=== PATIENT | female | born 1965 | race Caucasian/White ===

== ENCOUNTER 2023-11-16 02:49 | Emergency (ER) | payer BC, SELFPAY ==
[2023-11-16] VITALS (25 sets, daily range): BP systolic 90–149; BP diastolic 58–117; BMI 31.7
[2023-11-16 03:42] LABS: % Basophils 0.6 % (0-2); % Eosinophils 1.4 % (0-6); % Immature Granulocytes 0.5 % (0-0.5); % Lymphocytes 24.4 % (20.5-51.1); % Monocytes 8.6 % (1.7-9.3); % Neutrophils 64.5 % (42.2-75.2); Absolute Eosinophils 0.1 10^3/uL (0-0.7); Absolute Lymphocytes 1.5 10^3/uL (1.2-3.4); Absolute Monocytes 0.5 10^3/uL (0.1-0.6); Hematocrit 35.2 % (37.0-47.0); Hemoglobin 11.8 g/dL (12.0-16.0); Mean Corp Hgb Conc. 33.5 g/dL (33.0-37.0); Mean Corpuscular Hgb 33.7 pg (27.0-31.0); Mean Corpuscular Volume 100.6 fL (81.0-99.0); Mean Platelet Volume 10.2 fL (7.4-10.4); Nucleated Red Blood Cells % 0 %; Platelet Count 249 10^3/uL (130-400); Red Cell Dist. Width 16.9 % (11.5-14.5); White Blood Cell Count 6.3 10^3/uL (4.8-10.8)
[2023-11-16 03:57] LABS: ALT (SGPT) 28 U/L (0-35); AST (SGOT) 54 U/L (14-36); Albumin 3.7 g/dl (3.5-5.0); Alkaline Phosphatase 88 U/L (38-126); Blood Urea Nitrogen 19 mg/dl (7-17); Calcium 8.9 mg/dl (8.4-10.2); Carbon Dioxide 29 mmol/L (22-30); Chloride 108 mmol/L (98-107); Estimated Creatinine Clearance 75 ml/min; Glucose 96 mg/dl (70-99); Sodium 137 mmol/L (135-145); Total Bilirubin 0.7 mg/dl (0.2-1.3); eGFR > 60.00
--- NOTE | 2023-11-16 05:27 | ED.GENMED ---
History of Present Illness
<COOKIE Garner - Last Filed: 11/16/23 06:59>
General
Chief Complaint: Musculo-Skeletal Complaint
Source: patient and significant other
Exam Limitations: none
Time Seen by Provider: 11/16/23 05:10
Nursing documentation reviewed up to this point in time: agreed with
Travel History
Have you had any contact with someone who has COVID-19?: No
Do you have any symptoms of coronavirus? Fever > 100 degrees, chills, cough, shortness of breath, sore throat, loss of taste or smell, muscle aches, or headache?: No
History of Present Illness
History of Present Illness:
Pt is a 58 yo female with right PARK in January 2023 and left PARK in june who presents today after bending down and feeling a 'pop' in her left hip. Pt states that she bent down towards her left side and felt a 'pop' and a severe pain in her left
hip. She collapsed and could not move her left leg. EMS was called and fentanyl was given for pain relief, last dose at 2:15 am. Pt presented with shortened, internally rotated left hip and appears dislocated upon xray. Pt states that she is in a
great deal of pain. Denies numbness or tingling down her left leg, abdominal pain, back pain, chest pain, SOB.
Past History
<COOKIE Garner - Last Filed: 11/16/23 06:59>
Past History
ED Past Medical History: Other (reviewed pmhx and agree)
ED Past Surgical History: Other (reviewed documented pshx and agree)
Social History
Personal:
Living: with family
Review of Systems
<COOKIE Garner - Last Filed: 11/16/23 06:59>
Review of Systems
Allergies reviewed?: Yes
Other source history: family
All Other Systems: ROS reviewed and negative except as documented in HPI and ROS
Phy Exam
<Yenifermoris Mckoy [facility] - Last Filed: 11/16/23 06:59>
General Physical Exam
General Presentation: mild distress
General Skin: warm and dry
General Mental: alert
ENT Exam
ENT Exam: neck supple, normocephalic and swallowing well
Cardiovascular Exam
Cardiovascular Exam: regular rate/rhythm, no edema, no gallop, no murmur and normal peripheral pulses
Pulmonary Exam
Pulmonary Exam: lungs clear, no respiratory distress, no rales, no crackles, no rhonchi, no stridor, no wheezing and no cough
Neurological Exam
Neurological Exam: alert, oriented x3 and speech normal
Musculoskeletal Exam
Musculoskeletal Exam: other (shortened, internally rotated left hip)
Skin Exam
Skin Exam: normal color and warm/dry
Psychiatric Exam
Psychiatric Exam: normal mood/affect
Course
<Yenifer Mckoy [facility] - Last Filed: 11/16/23 06:59>
Orders/Labs/Results
Orders:
Orders
11/16/23 03:14
CBC/With Diff [Complete Blood Count/With Diff] Urgent
Comprehensive Metabolic Panel Urgent
11/16/23 03:48
CR Hip - LT w/wo Pel 2-3 Vw* Urgent
Reason For Exam: injury
11/16/23 05:36
HYDROmorphone [Dilaudid] 0.5 mg .ROUTE .STK-MED ONE
11/16/23 05:40
HYDROmorphone [Dilaudid] 0.5 mg IV NOW STA
11/16/23 05:59
Propofol [Diprivan] 20 ml .ROUTE .STK-MED
11/16/23 06:10
Hip, Left 1 View [CR Hip - LT without Pel 1 Vw] Urgent
Comment: portable x-ray
Reason For Exam: post reduction
11/16/23 06:44
Knee Immobilizer Left-Treatmen ONCE
Abnormal Lab Results
11/16/23
03:14
RBC 3.50 L 10^6/uL
(4.20-5.40)
Hgb 11.8 L g/dL
(12.0-16.0)
Hct 35.2 L %
(37.0-47.0)
MCV 100.6 H fL
(81.0-99.0)
MCH 33.7 H pg
(27.0-31.0)
RDW 16.9 H %
(11.5-14.5)
Chloride 108 H mmol/L
(98-107)
BUN 19 H mg/dl
(7-17)
AST 54 H U/L
(14-36)
Total Protein 6.0 L g/dl
(6.3-8.2)
11/16/23 03:14
11/16/23 03:14
Vital Signs
Initial and Last Documented VS:
Initial Vital Signs
Temp Pulse Resp BP Pulse Ox
97.8 F 74 14 143/88 100
11/16/23 02:50 11/16/23 02:50 11/16/23 02:50 11/16/23 02:50 11/16/23 02:50
Last Documented Vital Signs
Temp Pulse Resp BP Pulse Ox
97.8 F 75 13 141/91 98
11/16/23 06:27 11/16/23 06:45 11/16/23 06:45 11/16/23 06:42 11/16/23 06:45
Mikelt;Rhianna Torres, DO - Last Filed: 11/16/23 07:00>
Orders/Labs/Results
Orders:
Orders
11/16/23 03:14
CBC/With Diff [Complete Blood Count/With Diff] Urgent
Comprehensive Metabolic Panel Urgent
11/16/23 03:48
CR Hip - LT w/wo Pel 2-3 Vw* Urgent
Reason For Exam: injury
11/16/23 05:36
HYDROmorphone [Dilaudid] 0.5 mg .ROUTE .STK-MED ONE
11/16/23 05:40
HYDROmorphone [Dilaudid] 0.5 mg IV NOW STA
11/16/23 05:59
Propofol [Diprivan] 20 ml .ROUTE .STK-MED
11/16/23 06:10
Hip, Left 1 View [CR Hip - LT without Pel 1 Vw] Urgent
Comment: portable x-ray
Reason For Exam: post reduction
11/16/23 06:44
Knee Immobilizer Left-Treatmen ONCE
Abnormal Lab Results
11/16/23
03:14
RBC 3.50 L 10^6/uL
(4.20-5.40)
Hgb 11.8 L g/dL
(12.0-16.0)
Hct 35.2 L %
(37.0-47.0)
MCV 100.6 H fL
(81.0-99.0)
MCH 33.7 H pg
(27.0-31.0)
RDW 16.9 H %
(11.5-14.5)
Chloride 108 H mmol/L
(98-107)
BUN 19 H mg/dl
(7-17)
AST 54 H U/L
(14-36)
Total Protein 6.0 L g/dl
(6.3-8.2)
11/16/23 03:14
11/16/23 03:14
Vital Signs
Initial and Last Documented VS:
Initial Vital Signs
Temp Pulse Resp BP Pulse Ox
97.8 F 74 14 143/88 100
11/16/23 02:50 11/16/23 02:50 11/16/23 02:50 11/16/23 02:50 11/16/23 02:50
Last Documented Vital Signs
Temp Pulse Resp BP Pulse Ox
97.8 F 75 13 141/91 98
11/16/23 06:27 11/16/23 06:45 11/16/23 06:45 11/16/23 06:42 11/16/23 06:45
<Rhianna Torres DO - Last Filed: 11/16/23 07:00>
Moderate Sedation
ASA Risk Score: Class II
Chart and allergies reviewed: Yes
Consent for anesthesia obtained: Yes
Time out completed (validating right patient & procedure): Yes
History of difficult intubation: No
Airway free of obstruction: Yes
Patient has a gag reflex: Yes
Patient is able to open mouth: Yes
Patient has no dentures: Yes
Patient has no loose teeth: Yes
Medication administered by Provider during Moderate Sedation: IV Propofol (mg)
Total dose administered: 100
Time drug administered: 06:05
Start Time: 06:05
Stop Time: 06:15
Joint/Fracture Reduction
Left Hip:
Indication for procedure:: Prosthetic left hip dislocation
Procedure completed by: Myself
Consent form signed: Yes
Joint reduced: with anesthesia sedation
Injury was: closed
Further treatement: no treatment needed
Post reduction exam: stable
Capillary Refill: normal
Normal distal neurovascular exam?: Yes
<COOKIE Garner - Last Filed: 11/16/23 06:59>
*Critical Care Note
Total Time (30-74mins, 75-104mins- exclusive of procedures): Not Applicable
<Rhianna Torres DO - Last Filed: 11/16/23 07:00>
*Radiology
Radiology exam reviewed: preliminary read by ED provider (Left hip x-ray shows posterior dislocation of prosthetic left hip. No evidence of fracture.)
*Pulse Oximetry
Patient hypoxic: no
*[employer] Interpretation
Rate: normal
Interpretation: normal
Rhythm: sinus
*Critical Care Note
Total Time (30-74mins, 75-104mins- exclusive of procedures): Not Applicable
ED Attending Note
<COOKIE Garner - Last Filed: 11/16/23 06:59>
-
Portions of this chart may have been created with voice recognition software.� Occasional wrong word or��sound alike� substitutions may have occurred due to the inherent limitations of voice recognition software.
<Rhianna Torres DO - Last Filed: 11/16/23 07:00>
ED Attending Note
Patient seen and examined by attending physician: Yes
I performed the substantive portion of visit, reviewed & personally made and approve the management plan that is documented in note by myself or MONET.: Yes
I performed a history and physical exam of patient and discussed management with resident, I reviewed resident's note and agree with documented findings and plan of care.: Yes
ED Attending Note:
This is a 58-year-old woman with history of chronic back pain, narcotic dependent, history of left total hip replacement by Dr. Davis June of this year. Has overall been doing well but does admit to some chronic left posterior hip pain most
noted when she sits on the toilet or sits in a chair. Tonight however she bent over to pick something up and felt a pop in left hip with onset of severe pain of her left hip and inability to move her hip due to increased pain. She did not fall.
She denies weakness nor numbness. She denies back pain.
She arrives via EMS. Left leg is noted to be shortened and internally rotated. She was given fentanyl IV prehospital.
She continues with moderate pain of her left hip only noted when she attempts to move her hip. Pain resolves when she is lying still.
No prior history of dislocation.
GENERAL: 58-year-old woman appears her stated age, awake and alert, appears in mild distress related to pain. Cooperative. is accompanying.
The head is normocephalic, atraumatic.
NECK: Supple, nontender, no meningismus, no significant adenopathy.
ENT: oral mucosa is moist. No rhinorrhea.
CARDIAC: Regular rate and rhythm. no murmur.
LUNGS: Clear breath sounds bilaterally, no acute respiratory distress, no wheezes/rales/rhonchi
ABDOMEN: Soft, nondistended, without focal tenderness, no r/g, no cvat. normoactive BS.
NEUROLOGICAL: Alert and oriented x3, no focal neuro deficits.
SKIN: Warm and dry, normal color, skin intact. No rash.
MUSCULOSKELETAL: No C/C/E. peripheral pulses are full and equal b/l. Left lower extremity is mildly shortened and internally rotated. Marked pain about the left hip with limited range of motion of left hip related to pain. There is no tenderness
about the thigh nor knee.
PSYCH: Normal and appropriate interaction.
Significant concern for acute prosthetic left hip dislocation and x-ray verifies this. There is no evidence of fracture.
Will plan for moderate sedation, closed reduction of left hip.
After much discussion, patient agreeable with this plan.
Will plan to notify orthopedics as per patient's request with ultimate goal for closed reduction, discharged to home with outpatient follow-up with orthopedics.
11/16/2023 0630 AM
Successful closed reduction of left prosthetic hip dislocation under moderate sedation with propofol.
Patient tolerated procedure well without complications.
Postreduction film reveal successful hip reduction. No evidence of fracture.
Patient is now awake and alert, reports significant relief of left hip pain.
She will be placed in a knee immobilizer on left leg with plan for discharge to home with follow-up with orthopedics.
She can continue her usual chronic narcotic pain medications.
Discharge Plan
Departure
Patient Disposition: Home (Routine Discharge)
Date of Disposition: 11/16/23
Time of Disposition: 06:57
Patient with high blood pressure during this ER visit?: No
Discharge Problem:
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
Instructions: Hip Dislocation (DC), Moderate Sedation in Adults (DC)
Prescriptions:
No Action
cyanocobalamin (vitamin B-12) 1,000 MCG/ML solution
1,000 mcg SC Q30D
Nucynta ER 100 MG tablet extended release 12 hr
150 mg PO BID
topiramate 200 mg Tablet
200 mg PO Q12H
ergocalciferol (vitamin D2) [Vitamin D2] 1,250 mcg (50,000 unit) Capsule
1,250 mcg PO PRN PRN (Reason: LOW VIT D)
Patient Comments:
TWICE WEEKLY X 8 WEEKS WHEN LEVELS LOW
calcitriol 0.25 mcg Capsule
0.25 mcg PO DAILY
eszopiclone [Lunesta] 3 mg Tablet
3 mg PO HS PRN (Reason: sleep)
lisdexamfetamine [Vyvanse] 70 mg Capsule
70 mg PO DAILY
venlafaxine 37.5 mg Tablet Extended Release 24hr
37.5 mg PO DAILY
levothyroxine 137 mcg Capsule
137 mcg PO DAILY
Nuedexta 20-10 mg Capsule
1 cap PO Q12H
Vraylar 1.5 mg Capsule
1.5 mg PO DAILY
cocoa butter-shark liver oil Suppository
1 supp [place] DAILYPRN PRN (Reason: constipation)
propranolol 40 mg Tablet
40 mg PO TID
diazepam [Valium] 10 mg Tablet
10 mg PO TID-QID
estradiol 2 mg (7.5 mcg /24 hour) Ring
1 vag ring VAGINAL [id number]
Patient Comments:
Patient stated vaginal ring has been out
diclofenac potassium 25 mg Capsule
25 mg PO DAILY
Hold Instructions: Resume on 07/17/23. hold while on Celecoxib/Celebrex
Xeljanz XR 11 mg Tablet Extended Release 24 Hr
11 mg PO DAILY
Hold Instructions: Resume on 07/22/23.
methotrexate 2.5 mg/mL Solution
12.5 mg PO .TWICEWEEKLY
baclofen 5 mg Tablet
5 mg PO PRN PRN (Reason: MUSCLE SPASMS)
furosemide [Lasix] 20 mg tablet
20 mg PO DAILY
Rx Instructions:
HOLD IF systolic blood pressure <130
polyethylene glycol 3350 [Miralax] 17 gram/dose Powder
4 g PO DAILY PRN (Reason: CONSTIPATION )
mupirocin 2 % ointment
1 applic topical BID Qty: 1 0RF
Patient Comments:
started treatment thursday06/29/23 and was taking BID , last took at home 06/30/23 2200.
nystatin 100,000 unit/gram powder
1 applic topical BID Qty: 30 0RF
Patient Comments:
last took at home 06/30/23 in evening
Rx Instructions:
apply in inguinal folds
celecoxib 200 mg capsule
200 mg PO DAILY Qty: 14 0RF
Rx Instructions:
*take with food
*space out 2 hours from aspirin
prochlorperazine maleate [prochlorperazine maleate] 5 mg tablet
5 mg PO Q6HPRN PRN (Reason: n/v) Qty: 15 1RF
Rx Instructions:
take 1/2 hour before pain med if experiencing recurrent nausea
cefadroxil 500 mg capsule
500 mg PO BID Qty: 14 0RF
Rx Instructions:
*Take w/ food
*Take w/ probiotic
*POST-OP USE
dexamethasone 4 mg tablet
4 mg PO BID Qty: 6 0RF
Rx Instructions:
take with food
post-op use only
gabapentin 300 mg capsule
300 mg PO HS Qty: 10 0RF
Patient Comments:
last took 07/01/23 at 0700
bupropion HCl 150 mg Tablet Extended Release 24 Hr
150 mg PO BID
Nucynta 75 mg Tablet
75 mg PO Q6H PRN (Reason: moderate-severe pain)
aspirin 325 mg tablet
325 mg PO DAILY Qty: 1 0RF
Rx Instructions:
Take with food
magnesium hydroxide [Milk of Magnesia] 400 mg/5 mL suspension
30 ml PO HS Qty: 30 0RF
Rx Instructions:
*TAKE NIGHTLY UNTIL BM*
docusate sodium [Colace] 100 mg capsule
100 mg PO BID Qty: 1 0RF
sennosides [Senokot] 8.6 mg tablet
17.2 mg PO BID Qty: 2 0RF
prednisone 1 mg Tablet
4 mg PO DAILY PRN (Reason: RA FLAIR) Qty: 0 0RF
Rx Instructions:
do not take while on Dexamethasone
fluconazole [Diflucan] 100 mg tablet
100 mg PO DAILY Qty: 1 0RF
Rx Instructions:
TAKE 2 DAYS AFTER LAST CEFADROXIL DOSE
Referrals:
Jamshid Dumas DO [Family Provider] -
Bull Davis MD [Active] - Call in 1-3 days for appt
Interventions
Interventions:
*Risk Screen - Suicide Last Done: 11/16/23 02:50
*General Assessment Last Done: 11/16/23 02:50
*Neglect/Abuse Screening Last Done: 11/16/23 02:50
ED- Fall Risk Assessment Last Done: 11/16/23 03:04
*ED COVID-19 Vaccine History Last Done: 11/16/23 03:04
ED-Musculoskeletal Assessment Last Done: 11/16/23 03:04
[2023-11-16] MEDS: DILAUDID 0.5 MG IV (05:41)
[2023-11-16] MEDS: NSS 1000 IV (05:50)
== END 2023-11-16 07:29 | disposition home or self-care (01) ==
LOC: EMR 02:49
PROVIDERS: EMERGENCY PHYSICIAN Emergency Medicine; FAMILY PHYSICIAN Family Medicine
DX: T84.021A Dislocation of internal left hip prosthesis, initial encounter (principal); Z96.641 Presence of right artificial hip joint
CPT/HCPCS: 99285; 27265; 96374; 96361; 99152; 73501; 73502; 80053; 85025

== ENCOUNTER 2024-06-13 20:10 | Emergency (ER) | payer BC, MEDICARE, SELFPAY ==
[2024-06-13] VITALS (11 sets, daily range): BP systolic 116–162; BP diastolic 66–108; BMI 29.5
[2024-06-13] MEDS: DILAUDID 0.5 MG IV (21:15)
--- NOTE | 2024-06-13 22:00 | ED.GENMED ---
History of Present Illness
General
Chief Complaint: Musculo-Skeletal Complaint
Source: patient
Time Seen by Provider: 06/13/24 21:19
History of Present Illness
History of Present Illness:
58-year-old female presents to the emergent complaint right hip pain. Patient states that she was 'jiggling to get out of her bathing suit' and bending over when she felt her right hip pop out. She had immediate pain. She was unable to stand.
Patient has bilateral hip replacements. She had a spontaneous dislocation of her left hip recently. This feels very similar. No other injury
Past History
Past History
ED Past Medical History: Other (reviewed pmhx and agree)
ED Past Surgical History: Other (reviewed documented pshx and agree)
Social History
Personal:
Living: with family
Phy Exam
Physical Exam
Physical Exam:
General: Awake, Alert, Oriented X3. No acute distress.
Vitals: unremarkable
Head: Atraumatic
Eyes: Pupils equal, EOMI
Throat: Airway intact, no exudates
Neck: Trachea midline
Lungs: Clear and equal b/l
Heart: Regular rate, no murmurs
Abd: Soft, Nontender, No pulsatile mass
Neuro: Nonfocal
Skin: Warm, dry, no rash
Extremities: Right hip internally rotated and shortened. Pulses intact
Course
Orders/Labs/Results
Orders:
Orders
06/13/24 21:00
Hip, Right 2-3 Views [CR Hip - RT w/wo Pel 2-3 Vw*] Urgent
Comment:
Reason For Exam: hip pain, rotated
Include a pelvis x-ray?: No
06/13/24 21:13
HYDROmorphone [Dilaudid] 0.5 mg IV NOW STA
06/13/24 21:22
Propofol [Diprivan] 20 ml .ROUTE .STK-MED
06/13/24 21:48
CR Hip - RT without Pel 1 Vw Urgent
Comment:
Reason For Exam: post reduction
Vital Signs
Initial and Last Documented VS:
Initial Vital Signs
Temp Pulse Resp BP Pulse Ox
98.2 F 76 15 162/98 100
06/13/24 20:12 06/13/24 20:12 06/13/24 20:12 06/13/24 20:12 06/13/24 20:12
Last Documented Vital Signs
Temp Pulse Resp BP Pulse Ox
98.2 F 88 20 137/85 97
06/13/24 20:12 06/13/24 22:15 06/13/24 22:15 06/13/24 22:15 06/13/24 22:15
Procedures
Moderate Sedation
ASA Risk Score: Class II
Chart and allergies reviewed: Yes
Consent for anesthesia obtained: Yes
Time out completed (validating right patient & procedure): Yes
History of difficult intubation: No
Airway free of obstruction: Yes
Patient has a gag reflex: Yes
Patient is able to open mouth: Yes
Patient has no dentures: Yes
Patient has no loose teeth: Yes
Medication administered by Provider during Moderate Sedation: IV Propofol (mg)
Total dose administered: 150
Time drug administered: 21:45
Moderate Sedation Procedure End Time: 22:00
Joint/Fracture Reduction
Right Hip:
Indication for procedure:: dislocation
Procedure completed by: Ady Norwood and myself
Consent form signed: Yes
Joint reduced: with anesthesia sedation
Injury was: closed
Further treatement: needs re-check only
Post reduction exam: stable
Capillary Refill: normal
Normal distal neurovascular exam?: Yes
MDM/Problems Addressed
Differential Diagnosis Includes:
Hip dislocation, hip fracture
MDM/Problems Addressed:
Imaging confirms the presence of a right hip dislocation. We were able to reduce the hip with procedural sedation. Patient feels much better after the procedure. Postprocedure x-ray confirms reduction.
*Radiology
Radiology exam reviewed: preliminary read by ED provider (First hip x-ray shows dislocation of hip prosthesis. Second hip x-ray shows adequate reduction.)
*Pulse Oximetry
Patient hypoxic: no
*Critical Care Note
Total Time (30-74mins, 75-104mins- exclusive of procedures): Not Applicable
ED Attending Note
-
Portions of this chart may have been created with voice recognition software.� Occasional wrong word or��sound alike� substitutions may have occurred due to the inherent limitations of voice recognition software.
Discharge Plan
Departure
Patient Disposition: Home (Routine Discharge)
Date of Disposition: 06/13/24
Time of Disposition: 22:35
Patient with high blood pressure during this ER visit?: Yes
Discharge Problem:
Hip dislocation, right
Instructions: Hip Dislocation (DC), Procedural Sedation, Adult ED
Prescriptions:
No Action
cyanocobalamin (vitamin B-12) 1,000 MCG/ML solution
1,000 mcg SC Q30D
Nucynta ER 100 MG tablet extended release 12 hr
150 mg PO BID
topiramate 200 mg Tablet
200 mg PO Q12H
ergocalciferol (vitamin D2) [Vitamin D2] 1,250 mcg (50,000 unit) Capsule
1,250 mcg PO PRN PRN (Reason: LOW VIT D)
Patient Comments:
TWICE WEEKLY X 8 WEEKS WHEN LEVELS LOW
calcitriol 0.25 mcg Capsule
0.25 mcg PO DAILY
eszopiclone [Lunesta] 3 mg Tablet
3 mg PO HS PRN (Reason: sleep)
lisdexamfetamine [Vyvanse] 70 mg Capsule
70 mg PO DAILY
venlafaxine 37.5 mg Tablet Extended Release 24hr
37.5 mg PO DAILY
levothyroxine 137 mcg Capsule
137 mcg PO DAILY
Nuedexta 20-10 mg Capsule
1 cap PO Q12H
Vraylar 1.5 mg Capsule
1.5 mg PO DAILY
cocoa butter-shark liver oil Suppository
1 supp [place] DAILYPRN PRN (Reason: constipation)
propranolol 40 mg Tablet
40 mg PO TID
diazepam [Valium] 10 mg Tablet
10 mg PO TID-QID
estradiol 2 mg (7.5 mcg /24 hour) Ring
1 vag ring VAGINAL [id number]
Patient Comments:
Patient stated vaginal ring has been out
diclofenac potassium 25 mg Capsule
25 mg PO DAILY
Xeljanz XR 11 mg Tablet Extended Release 24 Hr
11 mg PO DAILY
methotrexate 2.5 mg/mL Solution
12.5 mg PO .TWICEWEEKLY
baclofen 5 mg Tablet
5 mg PO PRN PRN (Reason: MUSCLE SPASMS)
furosemide [Lasix] 20 mg tablet
20 mg PO DAILY
Rx Instructions:
HOLD IF systolic blood pressure <130
polyethylene glycol 3350 [Miralax] 17 gram/dose Powder
4 g PO DAILY PRN (Reason: CONSTIPATION )
mupirocin 2 % ointment
1 applic topical BID Qty: 1 0RF
Patient Comments:
started treatment thursday06/29/23 and was taking BID , last took at home 06/30/23 2200.
nystatin 100,000 unit/gram powder
1 applic topical BID Qty: 30 0RF
Patient Comments:
last took at home 06/30/23 in evening
Rx Instructions:
apply in inguinal folds
celecoxib 200 mg capsule
200 mg PO DAILY Qty: 14 0RF
Rx Instructions:
*take with food
*space out 2 hours from aspirin
prochlorperazine maleate [prochlorperazine maleate] 5 mg tablet
5 mg PO Q6HPRN PRN (Reason: n/v) Qty: 15 1RF
Rx Instructions:
take 1/2 hour before pain med if experiencing recurrent nausea
cefadroxil 500 mg capsule
500 mg PO BID Qty: 14 0RF
Rx Instructions:
*Take w/ food
*Take w/ probiotic
*POST-OP USE
dexamethasone 4 mg tablet
4 mg PO BID Qty: 6 0RF
Rx Instructions:
take with food
post-op use only
gabapentin 300 mg capsule
300 mg PO HS Qty: 10 0RF
Patient Comments:
last took 07/01/23 at 0700
bupropion HCl 150 mg Tablet Extended Release 24 Hr
150 mg PO BID
Nucynta 75 mg Tablet
75 mg PO Q6H PRN (Reason: moderate-severe pain)
aspirin 325 mg tablet
325 mg PO DAILY Qty: 1 0RF
Rx Instructions:
Take with food
magnesium hydroxide [Milk of Magnesia] 400 mg/5 mL suspension
30 ml PO HS Qty: 30 0RF
Rx Instructions:
*TAKE NIGHTLY UNTIL BM*
docusate sodium [Colace] 100 mg capsule
100 mg PO BID Qty: 1 0RF
sennosides [Senokot] 8.6 mg tablet
17.2 mg PO BID Qty: 2 0RF
prednisone 1 mg Tablet
4 mg PO DAILY PRN (Reason: RA FLAIR) Qty: 0 0RF
Rx Instructions:
do not take while on Dexamethasone
fluconazole [Diflucan] 100 mg tablet
100 mg PO DAILY Qty: 1 0RF
Rx Instructions:
TAKE 2 DAYS AFTER LAST CEFADROXIL DOSE
Referrals:
Jamshid Dumas DO [Family Provider] -
Bull Davis MD [Active] -
Interventions
Interventions:
*Risk Screen - Suicide Last Done: 06/13/24 20:16
*General Assessment Last Done: 06/13/24 20:16
*Neglect/Abuse Screening Last Done: 06/13/24 20:16
*ED COVID-19 Vaccine History Last Done: 06/13/24 20:16
ED-Musculoskeletal Assessment Last Done: 06/13/24 20:15
Discharge Date and Time
Print Language: BRUNEIAN
== END 2024-06-13 22:50 | disposition home or self-care (01) ==
LOC: EMR 20:10
PROVIDERS: EMERGENCY PHYSICIAN Emergency Medicine; FAMILY PHYSICIAN Family Medicine
DX: T84.020A Dislocation of internal right hip prosthesis, initial encounter (principal); X50.1XXA Overexertion from prolonged static or awkward postures, initial encounter; Y79.2 Prosthetic and other implants, materials and accessory orthopedic devices associated with adverse incidents; R03.0 Elevated blood-pressure reading, without diagnosis of hypertension; Z96.643 Presence of artificial hip joint, bilateral
CPT/HCPCS: 99285; 27265; 96374; 96361; 99152; 73501; 73502

== ENCOUNTER 2024-06-28 16:51 | Emergency (ER) | payer BC, MEDICARE, SELFPAY ==
[2024-06-28] VITALS (16 sets, daily range): BP systolic 109–134; BP diastolic 83–95; BMI 26.8
--- NOTE | 2024-06-28 17:02 | ED.GENMED ---
History of Present Illness
<SIENNA Thomson - Last Filed: 06/28/24 21:01>
General
Chief Complaint: Musculo-Skeletal Complaint
Source: patient
Exam Limitations: none
Time Seen by Provider: 06/28/24 16:54
History of Present Illness
History of Present Illness:
58 yr. old female who bilateral replacements presents to the ED. Pt reports she bent over to remove her pants to go to the Bathroom and felt her right hip dislocate. Pt reports she was just here in the ER 2 weeks ago for the same right hip
dislocation. This hip was originally replaced January [address] Davis. She does report that they were able to reduce hip in the ER here.
Past History
<SIENNA Thomson - Last Filed: 06/28/24 21:01>
Past History
ED Past Medical History: Other (reviewed pmhx and agree)
ED Past Surgical History: Other (reviewed documented pshx and agree)
Social History
Personal:
Living: with family
Review of Systems
<SIENNA Thomson - Last Filed: 06/28/24 21:01>
Review of Systems
Allergies reviewed?: Yes
All Other Systems: ROS reviewed and negative except as documented in HPI and ROS
Constitutional: Reports no symptoms; Denies fever, fatigue or chills
Musculoskeletal: Reports other (right hip pain felt it dislocate )
Skin: Reports no symptoms
Neurological: Reports no symptoms
Psychiatric: Reports no symptoms
Phy Exam
<SIENNA Thomson - Last Filed: 06/28/24 21:01>
General Physical Exam
General Presentation: no apparent distress
General age: appears stated age
General Skin: warm and dry
General Habitus: normal
General Mental: alert
General Hydration: appears well hydrated
Neurological Exam
Neurological Exam: alert and oriented x3
Musculoskeletal Exam
Musculoskeletal Exam: other (rle with strong pulses; right leg is shortened pain with movement)
Skin Exam
Skin Exam: normal color and warm/dry
Psychiatric Exam
Psychiatric Exam: normal mood/affect
Course
<SIENNA Thomson - Last Filed: 06/28/24 21:01>
Orders/Labs/Results
Orders:
Orders
06/28/24 16:59
HYDROmorphone [Dilaudid] 0.5 mg IV NOW STA
06/28/24 17:01
Hip, Right 2-3 Views [CR Hip - RT w/wo Pel 2-3 Vw*] Urgent
Comment:
Reason For Exam: pain pt felt hip dislocate
Include a pelvis x-ray?: Yes
06/28/24 18:00
HYDROmorphone [Dilaudid] 0.5 mg .ROUTE .STK-MED ONE
HYDROmorphone [Dilaudid] 0.5 mg IV NOW STA
06/28/24 18:08
Propofol [Diprivan] 20 ml .ROUTE .STK-MED
06/28/24 19:21
CR Hip - RT without Pel 1 Vw Urgent
Reason For Exam: post reduction
Vital Signs
Initial and Last Documented VS:
Initial Vital Signs
Temp Pulse Resp BP Pulse Ox
97.7 F 91 13 129/92 100
06/28/24 16:54 06/28/24 16:54 06/28/24 16:54 06/28/24 16:54 06/28/24 16:54
Last Documented Vital Signs
Temp Pulse Resp BP Pulse Ox
98.1 F 91 12 131/95 98
06/28/24 20:27 06/28/24 20:27 06/28/24 20:27 06/28/24 20:27 06/28/24 20:27
[employer] Systems Operations Superintendent consulted with Physician
[employer] Systems Operations Superintendent consulted with physician?: Yes
Name of Physician Consulted: Yenifer
<Alex Street, DO - Last Filed: 06/28/24 19:29>
Orders/Labs/Results
Orders:
Orders
06/28/24 16:59
HYDROmorphone [Dilaudid] 0.5 mg IV NOW STA
06/28/24 17:01
Hip, Right 2-3 Views [CR Hip - RT w/wo Pel 2-3 Vw*] Urgent
Comment:
Reason For Exam: pain pt felt hip dislocate
Include a pelvis x-ray?: Yes
06/28/24 18:00
HYDROmorphone [Dilaudid] 0.5 mg .ROUTE .STK-MED ONE
HYDROmorphone [Dilaudid] 0.5 mg IV NOW STA
06/28/24 18:08
Propofol [Diprivan] 20 ml .ROUTE .STK-MED
06/28/24 19:21
CR Hip - RT without Pel 1 Vw Urgent
Reason For Exam: post reduction
Vital Signs
Initial and Last Documented VS:
Initial Vital Signs
Temp Pulse Resp BP Pulse Ox
97.7 F 91 13 129/92 100
06/28/24 16:54 06/28/24 16:54 06/28/24 16:54 06/28/24 16:54 06/28/24 16:54
Last Documented Vital Signs
Temp Pulse Resp BP Pulse Ox
98.1 F 91 12 131/95 98
06/28/24 20:27 06/28/24 20:27 06/28/24 20:27 06/28/24 20:27 06/28/24 20:27
Procedures
<Alex Street DO - Last Filed: 06/28/24 19:29>
Moderate Sedation
ASA Risk Score: Class II
Chart and allergies reviewed: Yes
Consent for anesthesia obtained: Yes
Time out completed (validating right patient & procedure): Yes
Moderate Sedation Start Time(when first medication is given): 19:16
History of difficult intubation: No
Airway free of obstruction: Yes
Patient has a gag reflex: Yes
Patient is able to open mouth: Yes
Patient has no dentures: Yes
Patient has no loose teeth: Yes
Medication administered by Provider during Moderate Sedation: IV Propofol (mg)
Total dose administered: 100
Time drug administered: :16
Moderate Sedation Procedure End Time: :
Comment: The patient was given propofol 40 mg and 40 mg and 20 mg = 100 mg.
<SIENNA Thomson - Last Filed: 06/28/24 21:01>
MDM/Problems Addressed
Differential Diagnosis Includes:
not limited to : dislocation /fracutre
MDM/Problems Addressed:
As documented patient is a 58-year-old female with bilateral hip replacement presented to the ER with right hip dislocation. This is the second time this is occurred. This was previously reduced after dislocation 2 weeks ago here in the ER.
Patient had successful moderate sedation and right hip reduction by myself and ED physician. Will refer to outpatient Ortho follow-up orthopedics Dr. Stauffer made aware. Patient educated on hip or cautions(the need to wear immobilizer at all times no
hip flexion past 90 degrees and no crossing legs)
Chronic conditions affecting care:
b/l hip replacement
<SIENNA Thomson - Last Filed: 06/28/24 21:01>
*Critical Care Note
Total Time (30-74mins, 75-104mins- exclusive of procedures): Not Applicable
ED Attending Note
<SIENNA Thomson - Last Filed: 06/28/24 21:01>
-
Portions of this chart may have been created with voice recognition software.� Occasional wrong word or��sound alike� substitutions may have occurred due to the inherent limitations of voice recognition software.
<Alex Street, DO - Last Filed: 06/28/24 19:29>
ED Attending Note
Patient seen and examined by attending physician: Yes
I performed the substantive portion of visit, reviewed & personally made and approve the management plan that is documented in note by myself or MONET.: Yes
I performed a history and physical exam of patient and discussed management with resident, I reviewed resident's note and agree with documented findings and plan of care.: Yes
ED Attending Note:
I evaluated patient at bedside. Hip successfully reduced.
Discharge Plan
Departure
Instructions: Hip Dislocation (DC), MODERATE SEDATION ADULT
Prescriptions:
No Action
cyanocobalamin (vitamin B-12) 1,000 MCG/ML solution
1,000 mcg SC Q30D
Nucynta ER 100 MG tablet extended release 12 hr
150 mg PO BID
topiramate 200 mg Tablet
200 mg PO Q12H
ergocalciferol (vitamin D2) [Vitamin D2] 1,250 mcg (50,000 unit) Capsule
1,250 mcg PO PRN PRN (Reason: LOW VIT D)
Patient Comments:
TWICE WEEKLY X 8 WEEKS WHEN LEVELS LOW
calcitriol 0.25 mcg Capsule
0.25 mcg PO DAILY
eszopiclone [Lunesta] 3 mg Tablet
3 mg PO HS PRN (Reason: sleep)
lisdexamfetamine [Vyvanse] 70 mg Capsule
70 mg PO DAILY
venlafaxine 37.5 mg Tablet Extended Release 24hr
37.5 mg PO DAILY
levothyroxine 137 mcg Capsule
137 mcg PO DAILY
Nuedexta 20-10 mg Capsule
1 cap PO Q12H
Vraylar 1.5 mg Capsule
1.5 mg PO DAILY
cocoa butter-shark liver oil Suppository
1 supp [place] DAILYPRN PRN (Reason: constipation)
propranolol 40 mg Tablet
40 mg PO TID
diazepam [Valium] 10 mg Tablet
10 mg PO TID-QID
estradiol 2 mg (7.5 mcg /24 hour) Ring
1 vag ring VAGINAL [id number]
Patient Comments:
Patient stated vaginal ring has been out
diclofenac potassium 25 mg Capsule
25 mg PO DAILY
Xeljanz XR 11 mg Tablet Extended Release 24 Hr
11 mg PO DAILY
methotrexate 2.5 mg/mL Solution
12.5 mg PO .TWICEWEEKLY
baclofen 5 mg Tablet
5 mg PO PRN PRN (Reason: MUSCLE SPASMS)
furosemide [Lasix] 20 mg tablet
20 mg PO DAILY
Rx Instructions:
HOLD IF systolic blood pressure <130
polyethylene glycol 3350 [Miralax] 17 gram/dose Powder
4 g PO DAILY PRN (Reason: CONSTIPATION )
mupirocin 2 % ointment
1 applic topical BID Qty: 1 0RF
Patient Comments:
started treatment thursday06/29/23 and was taking BID , last took at home 06/30/23 2200.
nystatin 100,000 unit/gram powder
1 applic topical BID Qty: 30 0RF
Patient Comments:
last took at home 06/30/23 in evening
Rx Instructions:
apply in inguinal folds
celecoxib 200 mg capsule
200 mg PO DAILY Qty: 14 0RF
Rx Instructions:
*take with food
*space out 2 hours from aspirin
prochlorperazine maleate [prochlorperazine maleate] 5 mg tablet
5 mg PO Q6HPRN PRN (Reason: n/v) Qty: 15 1RF
Rx Instructions:
take 1/2 hour before pain med if experiencing recurrent nausea
cefadroxil 500 mg capsule
500 mg PO BID Qty: 14 0RF
Rx Instructions:
*Take w/ food
*Take w/ probiotic
*POST-OP USE
dexamethasone 4 mg tablet
4 mg PO BID Qty: 6 0RF
Rx Instructions:
take with food
post-op use only
gabapentin 300 mg capsule
300 mg PO HS Qty: 10 0RF
Patient Comments:
last took 07/01/23 at 0700
bupropion HCl 150 mg Tablet Extended Release 24 Hr
150 mg PO BID
Nucynta 75 mg Tablet
75 mg PO Q6H PRN (Reason: moderate-severe pain)
aspirin 325 mg tablet
325 mg PO DAILY Qty: 1 0RF
Rx Instructions:
Take with food
magnesium hydroxide [Milk of Magnesia] 400 mg/5 mL suspension
30 ml PO HS Qty: 30 0RF
Rx Instructions:
*TAKE NIGHTLY UNTIL BM*
docusate sodium [Colace] 100 mg capsule
100 mg PO BID Qty: 1 0RF
sennosides [Senokot] 8.6 mg tablet
17.2 mg PO BID Qty: 2 0RF
prednisone 1 mg Tablet
4 mg PO DAILY PRN (Reason: RA FLAIR) Qty: 0 0RF
Rx Instructions:
do not take while on Dexamethasone
fluconazole [Diflucan] 100 mg tablet
100 mg PO DAILY Qty: 1 0RF
Rx Instructions:
TAKE 2 DAYS AFTER LAST CEFADROXIL DOSE
Referrals:
Jamshid Dumas DO [Family Provider] -
Bull Davis MD [Active] -
Activity Restrictions/Additional Instructions:
As discussed wear knee immobilizer at all times and no hip flexion past 90 degrees and no crossing legs. Weight-bear as tolerated however avoid exercise
Call orthopedics tomorrow to make an appointment soon as possible return if any worsening of symptoms.
Interventions
Interventions:
*Risk Screen - Suicide Last Done: 06/28/24 16:54
*General Assessment Last Done: 06/28/24 16:54
*Neglect/Abuse Screening Last Done: 06/28/24 16:54
ED- Fall Risk Assessment Last Done: 06/28/24 16:54
ED-Musculoskeletal Assessment Last Done: 06/28/24 17:08
Discharge Date and Time
Print Language: FAROESE
[2024-06-28] MEDS: DILAUDID 0.5 MG IV ×2 (17:05→18:01)
== END 2024-06-28 21:32 | disposition home or self-care (01) ==
LOC: EMR 16:51
PROVIDERS: EMERGENCY PHYSICIAN Emergency Medicine; FAMILY PHYSICIAN Family Medicine
DX: T84.020A Dislocation of internal right hip prosthesis, initial encounter (principal); X58.XXXA Exposure to other specified factors, initial encounter; Z96.642 Presence of left artificial hip joint
CPT/HCPCS: 27265; 99152; 99285; 96374; 96376; 73501; 73502

== ENCOUNTER 2024-09-28 20:43 | Emergency (ER) | payer MEDICARE, BC, SELFPAY ==
[2024-09-28] VITALS (20 sets, daily range): BP systolic 104–140; BP diastolic 62–89; BMI 29.8
--- NOTE | 2024-09-28 21:11 | ED.GENMED ---
History of Present Illness
General
Chief Complaint: Musculo-Skeletal Complaint
Time Seen by Provider: 09/28/24 21:03
History of Present Illness
History of Present Illness:
51-year-old female history of bilateral hip replacements presenting with right hip pain starting tonight. Patient states that she stepped on a stool to go to bed when she felt that her right hip dislocated. Patient denies falling or striking her
head. Patient denies numbness. Patient states this feels similar to previous dislocations. Patient states that her right hip was replaced in June [address] Davis. Patient received fentanyl 100 mcg by EMS prior to arrival.
Past History
Past History
ED Past Medical History: Other (reviewed pmhx and agree)
ED Past Surgical History: Other (reviewed documented pshx and agree)
Social History
Personal:
Living: with family
Phy Exam
Physical Exam
Physical Exam:
General: Alert, no acute distress
Head: NCAT
Eyes: clear conjunctiva
Neck: supple
Cardiac: regular rate and rhythm, no murmur
Lungs: clear to auscultation bilaterally. No wheezes, rales, or rhonchi. Speaking full unlabored sentences. No respiratory distress.
Abdomen: soft, nondistended nontender. No rebound or guarding.
MSK: no lower extremity edema bilaterally. Right hip tenderness palpation. Right lower extremity shortened and internally rotated. 2+ DP pulse. Sensation intact.
Skin: warm, dry
Neuro: Alert and oriented x3. no focal deficits
Course
Orders/Labs/Results
Orders:
Orders
09/28/24 21:09
CR Hip - RT w/wo Pel 2-3 Vw* Urgent
Comment:
Reason For Exam: pain, right hip shortened and internally rotated
Include a pelvis x-ray?: Yes
09/28/24 22:08
ASA Classification Routine
Propofol [Diprivan] 80 mg IV NOW STA
09/28/24 22:37
Hip, Right 1 View [CR Hip - RT without Pel 1 Vw] Urgent
Comment:
Reason For Exam: post reduction
Vital Signs
Initial and Last Documented VS:
Initial Vital Signs
BP
140/85
09/28/24 20:51
Last Documented Vital Signs
Temp Pulse Resp BP Pulse Ox
97.8 F 92 11 107/70 95
09/28/24 22:34 09/28/24 23:01 09/28/24 23:01 09/28/24 23:01 09/28/24 23:01
Procedures
Moderate Sedation
ASA Risk Score: Class I
Chart and allergies reviewed: Yes
Consent for anesthesia obtained: Yes
Time out completed (validating right patient & procedure): Yes
Moderate Sedation Start Time(when first medication is given): 22:33
History of difficult intubation: No
Airway free of obstruction: No
Patient has a gag reflex: Yes
Patient is able to open mouth: Yes
Patient has no dentures: Yes
Patient has no loose teeth: Yes
Medication administered by Provider during Moderate Sedation: IV Propofol (mg)
Total dose administered: 100
Time drug administered: 22:33
Moderate Sedation Procedure End Time: 22:51
Joint/Fracture Reduction
Right Superior Hip:
Indication for procedure:: dislocation
Procedure completed by: nicolette
Consent form signed: Yes
If no, reason: Emergency procedure
Joint reduced: with anesthesia sedation
Anesthesia/sedation: Moderate sedation
Injury was: closed
Further treatement: needs re-check only
Post reduction exam: stable
Capillary Refill: normal
Normal distal neurovascular exam?: Yes
Peripheral Pulses: dorsalis pedis (right): 2+
MDM/Problems Addressed
Differential Diagnosis Includes:
Dislocation, fracture
MDM/Problems Addressed:
X-ray reviewed, right hip superior dislocation. Discussed results with patient at bedside. Recommended reduction with moderate sedation here in the emergency department. Patient agreeable. Patient states that she last ate at 3 PM. Patient
denies history of difficulty with anesthesia. Discussed risks including hypotension, respiratory failure, fracture, pain, failed reduction. Patient agreeable to reduction with moderate sedation, gave written and verbal consent. Sedated with
propofol 100 mg and successfully reduced right hip. Repeat x-ray confirms reduction with no fracture. Patient able to wiggle toes, 2+ right DP pulse. Applied right knee immobilizer. Stable for discharge with orthopedic follow-up
*Critical Care Note
Total Time (30-74mins, 75-104mins- exclusive of procedures): Not Applicable
ED Attending Note
-
Portions of this chart may have been created with voice recognition software.� Occasional wrong word or��sound alike� substitutions may have occurred due to the inherent limitations of voice recognition software.
Discharge Plan
Departure
Patient Disposition: Home (Routine Discharge)
Date of Disposition: 09/29/24
Time of Disposition: 00:01
Patient with high blood pressure during this ER visit?: Yes
Discharge Problem:
Dislocation of right hip
Instructions: Hip Dislocation (DC)
Prescriptions:
No Action
cyanocobalamin (vitamin B-12) 1,000 MCG/ML solution
1,000 mcg SC Q30D
Nucynta ER 100 MG tablet extended release 12 hr
150 mg PO BID
topiramate 200 mg Tablet
200 mg PO Q12H
ergocalciferol (vitamin D2) [Vitamin D2] 1,250 mcg (50,000 unit) Capsule
1,250 mcg PO PRN PRN (Reason: LOW VIT D)
Patient Comments:
TWICE WEEKLY X 8 WEEKS WHEN LEVELS LOW
calcitriol 0.25 mcg Capsule
0.25 mcg PO DAILY
eszopiclone [Lunesta] 3 mg Tablet
3 mg PO HS PRN (Reason: sleep)
lisdexamfetamine [Vyvanse] 70 mg Capsule
70 mg PO DAILY
venlafaxine 37.5 mg Tablet Extended Release 24hr
37.5 mg PO DAILY
levothyroxine 137 mcg Capsule
137 mcg PO DAILY
Nuedexta 20-10 mg Capsule
1 cap PO Q12H
Vraylar 1.5 mg Capsule
1.5 mg PO DAILY
cocoa butter-shark liver oil Suppository
1 supp [place] DAILYPRN PRN (Reason: constipation)
propranolol 40 mg Tablet
40 mg PO TID
diazepam [Valium] 10 mg Tablet
10 mg PO TID-QID
estradiol 2 mg (7.5 mcg /24 hour) Ring
1 vag ring VAGINAL [id number]
Patient Comments:
Patient stated vaginal ring has been out
diclofenac potassium 25 mg Capsule
25 mg PO DAILY
Xeljanz XR 11 mg Tablet Extended Release 24 Hr
11 mg PO DAILY
methotrexate 2.5 mg/mL Solution
12.5 mg PO .TWICEWEEKLY
baclofen 5 mg Tablet
5 mg PO PRN PRN (Reason: MUSCLE SPASMS)
furosemide [Lasix] 20 mg tablet
20 mg PO DAILY
Rx Instructions:
HOLD IF systolic blood pressure <130
polyethylene glycol 3350 [Miralax] 17 gram/dose Powder
4 g PO DAILY PRN (Reason: CONSTIPATION )
mupirocin 2 % ointment
1 applic topical BID Qty: 1 0RF
Patient Comments:
started treatment thursday06/29/23 and was taking BID , last took at home 06/30/23 2200.
nystatin 100,000 unit/gram powder
1 applic topical BID Qty: 30 0RF
Patient Comments:
last took at home 06/30/23 in evening
Rx Instructions:
apply in inguinal folds
celecoxib 200 mg capsule
200 mg PO DAILY Qty: 14 0RF
Rx Instructions:
*take with food
*space out 2 hours from aspirin
prochlorperazine maleate [prochlorperazine maleate] 5 mg tablet
5 mg PO Q6HPRN PRN (Reason: n/v) Qty: 15 1RF
Rx Instructions:
take 1/2 hour before pain med if experiencing recurrent nausea
cefadroxil 500 mg capsule
500 mg PO BID Qty: 14 0RF
Rx Instructions:
*Take w/ food
*Take w/ probiotic
*POST-OP USE
dexamethasone 4 mg tablet
4 mg PO BID Qty: 6 0RF
Rx Instructions:
take with food
post-op use only
gabapentin 300 mg capsule
300 mg PO HS Qty: 10 0RF
Patient Comments:
last took 07/01/23 at 0700
bupropion HCl 150 mg Tablet Extended Release 24 Hr
150 mg PO BID
Nucynta 75 mg Tablet
75 mg PO Q6H PRN (Reason: moderate-severe pain)
aspirin 325 mg tablet
325 mg PO DAILY Qty: 1 0RF
Rx Instructions:
Take with food
magnesium hydroxide [Milk of Magnesia] 400 mg/5 mL suspension
30 ml PO HS Qty: 30 0RF
Rx Instructions:
*TAKE NIGHTLY UNTIL BM*
docusate sodium [Colace] 100 mg capsule
100 mg PO BID Qty: 1 0RF
sennosides [Senokot] 8.6 mg tablet
17.2 mg PO BID Qty: 2 0RF
prednisone 1 mg Tablet
4 mg PO DAILY PRN (Reason: RA FLAIR) Qty: 0 0RF
Rx Instructions:
do not take while on Dexamethasone
fluconazole [Diflucan] 100 mg tablet
100 mg PO DAILY Qty: 1 0RF
Rx Instructions:
TAKE 2 DAYS AFTER LAST CEFADROXIL DOSE
Referrals:
Alesia,Jamshid, DO [Family Provider] -
Ivan Dodd MD [Active] -
Bull Davis MD [Active] -
Activity Restrictions/Additional Instructions:
Wear knee immobilizer
Follow-up with orthopedics within 1 week
Return to the emergency department for new/worsening symptoms
Interventions
Interventions:
*Risk Screen - Suicide Last Done: 09/28/24 21:00
*General Assessment Last Done: 09/28/24 21:00
*Neglect/Abuse Screening Last Done: 09/28/24 21:00
*ED COVID-19 Vaccine History Last Done: 09/28/24 21:51
ED-Musculoskeletal Assessment Last Done: 09/28/24 21:51
Discharge Date and Time
Print Language: VIET[place]ESE
[2024-09-28] MEDS: DIPRIVAN 80 MG IV (22:40)
== END 2024-09-29 00:15 | disposition home or self-care (01) ==
LOC: EMR 20:43
PROVIDERS: EMERGENCY PHYSICIAN Emergency Medicine; FAMILY PHYSICIAN Family Medicine; REFERRING PHYSICIAN Internal Medicine Rheumatology
DX: T84.020A Dislocation of internal right hip prosthesis, initial encounter (principal); X58.XXXA Exposure to other specified factors, initial encounter; Z96.643 Presence of artificial hip joint, bilateral
CPT/HCPCS: 27265; 99152; 99285; 73501; 73502